=== PATIENT | female | born 1970 | race Caucasian/White ===

== ENCOUNTER 2016-05-21 06:44 | Emergency (ER) | payer BC ==
[2016-05-21] MEDS ORDERED: Sodium Chloride 0.9% 2.5 ML Syringe FLUSH PRN (07:07)
[2016-05-21] MEDS ORDERED: Sodium Chloride 0.9% 10 ML Syringe FLUSH PRN (07:07)
[2016-05-21] MEDS ORDERED: Ketorolac 30 MG/ML SDV IVPUSH ONE (07:07)
[2016-05-21] MEDS ORDERED: Sodium Chloride 0.9% 1,000 ML IV ONE (07:07)
[2016-05-21] MEDS ORDERED: LORazepam 2 MG/ML MDV IVPUSH ONE (07:09)
[2016-05-21] MEDS ORDERED: HYDROmorphone 1 MG/ML Syringe IVPUSH PRN (07:10)
[2016-05-21] MEDS ORDERED: Ondansetron 4 MG/2 ML SDV IVPUSH ONE (07:11)
--- NOTE | 2016-05-21 07:20 | EDM.PDOC ---
ED HPI GI/ABDOMINAL - General Chief Complaint: Abdominal Pain Stated Complaint: CHEST PAIN, SHORTNESS OF BREATH Time Seen by Provider: 05/21/16 06:58 Source of Information: Reports: Patient History Limitations: Reports: No limitations - History of Present Illness INITIAL COMMENTS - FREE TEXT/NARRATIVE: History of present illness: [] Patient has had several weeks of upper abdominal pain one to 2 times a week and is alleviated with antacids. Patient awoke at 4 this morning with severe, sharp, left upper abdominal pain radiating to her chest, nausea and bilious vomiting. Patient denies fevers, diarrhea or back pain. Review of systems: As per history of present illness and below otherwise all systems reviewed and negative. Past medical history: As per history of present illness and as reviewed below otherwise noncontributory. Surgical history: As per history of present illness and as reviewed below otherwise noncontributory. Social history: No reported history of drug or alcohol abuse. Family history: As per history of present illness and as reviewed below otherwise noncontributory. Physical exam: General: Well developed, well nourished in severe painful distress HEENT: Atraumatic, normocephalic, pupils reactive, negative for conjunctival pallor or scleral icterus, mucous membranes moist, throat clear, neck supple, nontender, trachea midline. Lungs: Clear to auscultation, breath sounds equal bilaterally, chest nontender. Heart: S1S2, regular, negative for clicks, rubs, or JVD. Abdomen: Soft, nondistended, upper abdominal tenderness without rebound or regarding. Negative for masses or hepatosplenomegaly. Negative for costovertebral tenderness. Pelvis: Stable nontender. Genitourinary: Deferred. Rectal: Deferred. Extremities: Atraumatic, negative for cords or calf pain. Neurovascular unremarkable. Neuro: Awake, alert, oriented. Cranial nerves II through XII unremarkable. Cerebellum unremarkable. Motor and sensory unremarkable throughout. Exam nonfocal. Diagnostics: []labs are normal x-rays to rule out perforation and obstruction Therapeutics: []patient was hydrated and given pain medicines antiemetics and as Pepcid with improvement Impression: []GERD Plan: []omeprazole twice a day for 2 weeks followup with primary care physician return if symptoms worsen Definitive disposition and diagnosis as appropriate pending reevaluation and review of above. - Related Data Allergies/ADRs: Allergies Allergy/AdvReac Type Severity Reaction Status Date / Time morphine Allergy Itching Verified 05/21/16 06:50 Home Meds: Home Meds Acetaminophen/HYDROcodone [Lortab 500-5 MG] 1 tab PO ASDIRECTED PRN 07/17/13 [ History] FLUoxetine [PROzac] 20 mg PO DAILY 07/17/13 [History] Phentermine HCl 37.5 mg PO ASDIRECTED 09/14/15 [History] Lisinopril 10 mg PO DAILY 05/21/16 [History] Past Medical History - Past Health History Medical/Surgical History: Denies Medical/Surgical History Social & Family History - Tobacco Use Smoking Status *Q: Never Smoker Years of Tobacco use: 10 Second Hand Smoke Exposure: No - Recreational Drug Use Recreational Drug Use: No ED ROS GENERAL - Review of Systems Review Of Systems: See Below (see history of present illness) ED EXAM, GI/ABD - Physical Exam Exam: See Below (See history of present illness) Course - Vital Signs Last Recorded V/S: Last Vital Signs Temp 37.2 C 05/21/16 06:52 Pulse 61 05/21/16 08:00 Resp 16 05/21/16 08:00 BP 149/83 H 05/21/16 08:00 Pulse Ox 95 05/21/16 08:00 - Orders/Labs/Meds Orders: Active Orders 24 hr Category Date Time Status EKG Documentation Completion [RC] STAT Care 05/21/16 06:56 Active Acute Abdomen Series [Abdomen 2V AP Upright Decub] [CR] Exams 05/21/16 07:55 Taken Stat HYDROmorphone [Dilaudid] Med 05/21/16 07:10 Active 0.5 mg IVPUSH Q1H PRN Sodium Chloride 0.9% [Saline Flush] Med 05/21/16 07:07 Active 10 ml FLUSH ASDIRECTED PRN Sodium Chloride 0.9% [Saline Flush] Med 05/21/16 07:07 Active 2.5 ml FLUSH ASDIRECTED PRN Peripheral IV Insertion Adult [OM.PC] Stat Oth 05/21/16 07:06 Ordered Medication Orders Hydromorphone HCl (Dilaudid) 0.5 mg IVPUSH Q1H PRN PRN Reason: Pain Last Admin: 05/21/16 07:28 Dose: 0.5 mg Sodium Chloride (Saline Flush) 10 ml FLUSH ASDIRECTED PRN PRN Reason: Keep Vein Open Last Admin: 05/21/16 07:27 Dose: 10 ml Sodium Chloride (Saline Flush) 2.5 ml FLUSH ASDIRECTED PRN PRN Reason: Keep Vein Open Last Admin: 05/21/16 07:25 Dose: 2.5 ml Labs: Laboratory Tests 05/21/16 05/21/16 05/21/16 Range/Units 07:07 07:07 09:10 WBC 8.52 (4.0-11.0) K/uL RBC 4.70 (4.30-5.90) M/uL Hgb 15.4 (12.0-16.0) g/dL Hct 43.9 (36.0-46.0) % MCV 93.4 (80.0-98.0) fL MCH 32.8 H (27.0-32.0) pg MCHC 35.1 (31.0-37.0) g/dL RDW Std Deviation 43.0 (28.0-62.0) fl RDW Coeff of Anthony 13 (11.0-15.0) % Plt Count 283 (150-400) K/uL MPV 10.10 (7.40-12.00) fL Neut % (Auto) 56.7 (48.0-80.0) % Lymph % (Auto) 34.7 (16.0-40.0) % [place] % (Auto) 7.5 (0.0-15.0) % Eos % (Auto) 0.7 (0.0-7.0) % Baso % (Auto) 0.4 (0.0-1.5) % Neut # (Auto) 4.8 (1.4-5.7) K/uL Lymph # (Auto) 3.0 H (0.6-2.4) K/uL [place] # (Auto) 0.6 (0.0-0.8) K/uL Eos # (Auto) 0.1 (0.0-0.7) K/uL Baso # (Auto) 0.0 (0.0-0.1) K/uL Nucleated RBC % 0.0 /100WBC Nucleated RBCs # 0 K/uL Sodium 139 (136-146) mmol/L Potassium 3.8 (3.5-5.1) mmol/L Chloride 104 (98-110) mmol/L Carbon Dioxide 22 (21-31) mmol/L BUN 17 (6.0-23.0) mg/dL Creatinine 0.8 (0.6-1.5) mg/dL Est Cr Clr Drug Dosing 87.27 mL/min Estimated GFR (MDRD) > 60.0 ml/min Glucose 106 (60-110) mg/dL Calcium 10.6 (8.8-10.8) mg/dL Total Bilirubin 0.4 (0.1-1.5) mg/dL AST 24 (5-40) IU/L ALT 48 (8-54) IU/L Alkaline Phosphatase 89 (40-150) Total Protein 7.5 (6.0-8.0) g/dL Albumin 4.2 (3.5-5.0) g/dL Globulin 3.3 (2.0-3.5) g/dL Albumin/Globulin Ratio 1.3 (1.3-2.8) Lipase 33 (7-80) U/L Urine Color YELLOW Urine Appearance CLEAR Urine pH 8.0 (5.0-8.0) Ur Specific [place] 1.010 (1.001-1.035) Urine Protein NEGATIVE (NEGATIVE) mg/dL Urine Glucose (UA) NEGATIVE (NEGATIVE) mg/dL Urine Ketones NEGATIVE (NEGATIVE) mg/dL Urine Occult Blood NEGATIVE (NEGATIVE) Urine Nitrite NEGATIVE (NEGATIVE) Urine Bilirubin NEGATIVE (NEGATIVE) Urine Urobilinogen 0.2 (<2.0) EU/dL Ur Leukocyte Esterase NEGATIVE (NEGATIVE) Urine RBC 0-1 (0-2/HPF) Urine WBC 0-1 (0-5/HPF) Ur Epithelial Cells FEW (NONE-FEW) Urine Bacteria FEW (NEGATIVE) Meds: Medications Generic Name Dose Route Start Last Admin Trade Name Freq PRN Reason Stop Dose Admin Hydromorphone HCl 0.5 mg 05/21/16 07:10 05/21/16 07:28 Dilaudid IVPUSH 0.5 mg Q1H PRN Administration Pain Sodium Chloride 10 ml 05/21/16 07:07 05/21/16 07:27 Saline Flush FLUSH 10 ml ASDIRECTED PRN Administration Keep Vein Open Sodium Chloride 2.5 ml 05/21/16 07:07 05/21/16 07:25 Saline Flush FLUSH 2.5 ml ASDIRECTED PRN Administration Keep Vein Open Discontinued Medications Generic Name Dose Route Start Last Admin Trade Name Franny PRN Reason Stop Dose Admin Famotidine 20 mg 05/21/16 07:44 05/21/16 09:17 Pepcid IVPUSH 05/21/16 07:45 20 mg ONETIME ONE Administration Sodium Chloride 1,000 mls @ 999 mls/hr 05/21/16 07:07 05/21/16 07:23 Normal Saline IV 05/21/16 08:07 999 mls/hr .Bolus ONE Administration Ketorolac Tromethamine 30 mg 05/21/16 07:07 05/21/16 07:24 Toradol IVPUSH 05/21/16 07:08 30 mg ONETIME ONE Administration Lorazepam 1 mg 05/21/16 07:09 05/21/16 07:22 Ativan IVPUSH 05/21/16 07:10 1 mg ONETIME ONE Administration Ondansetron HCl 4 mg 05/21/16 07:11 05/21/16 07:28 Zofran IVPUSH 05/21/16 07:12 4 mg ONETIME ONE Administration Departure - Departure Time of Disposition: 09:39 Disposition: Home, Self-Care 01 Condition: good Clinical Impression: GERD (gastroesophageal reflux disease) Qualifiers: Esophagitis presence: esophagitis presence not specified Qualified Code(s): K21.9 - Gastro-esophageal reflux disease without esophagitis Referrals: Angie Stallinsg BOOK [employer]ICITOR [Primary Care Provider] - Forms: ED Department Discharge Additional Instructions: The following information is given to patients seen in the emergency department who are being discharged to home. This information is to outline your options for follow-up care. We provide all patients seen in our emergency department with a follow-up referral. The need for follow-up, as well as the timing and circumstances, are variable depending upon the specifics of your emergency department visit. If you don't have a primary care physician on staff, we will provide you with a referral. We always advise you to contact your personal physician following an emergency department visit to inform them of the circumstance of the visit and for follow-up with them and/or the need for any referrals to a consulting specialist. The emergency department will also refer you to a specialist when appropriate. This referral assures that you have the opportunity for follow-up care with a specialist. All of these measure are taken in an effort to provide you with optimal care, which includes your follow-up. Under all circumstances we always encourage you to contact your private physician who remains a resource for coordinating your care. When calling for follow-up care, please make the office aware that this follow-up is from your recent emergency room visit. If for any reason you are refused follow-up, please contact the [facility] Emergency Department at and asked to speak to the emergency department charge nurse. Omeprazole twice a day for 2 weeks follow up with your primary care physician [facility] [address] [place] [phone] - My Orders Last 24 Hours: My Active Orders 05/21/16 07:06 Peripheral IV Insertion Adult [OM.PC] Stat 05/21/16 07:07 Sodium Chloride 0.9% [Saline Flush] 10 ml FLUSH ASDIRECTED PRN Sodium Chloride 0.9% [Saline Flush] 2.5 ml FLUSH ASDIRECTED PRN 05/21/16 07:10 HYDROmorphone [Dilaudid] 0.5 mg IVPUSH Q1H PRN 05/21/16 07:55 Acute Abdomen Series [Abdomen 2V AP Upright Decub] [CR] Stat - Assessment/Plan Last 24 Hours: My Active Orders 05/21/16 07:06 Peripheral IV Insertion Adult [OM.PC] Stat 05/21/16 07:07 Sodium Chloride 0.9% [Saline Flush] 10 ml FLUSH ASDIRECTED PRN Sodium Chloride 0.9% [Saline Flush] 2.5 ml FLUSH ASDIRECTED PRN 05/21/16 07:10 HYDROmorphone [Dilaudid] 0.5 mg IVPUSH Q1H PRN 05/21/16 07:55 Acute Abdomen Series [Abdomen 2V AP Upright Decub] [CR] Stat
[2016-05-21 07:32] LABS: CHLORIDE,CL 104 mmol/L (98-110); SODIUM,NA 139 mmol/L (136-146)
[2016-05-21] MEDS ORDERED: Famotidine 20 MG/2 ML SDV IVPUSH ONE (07:44)
[2016-05-21 09:54] VITALS: BP 118/89
--- NOTE | 2016-05-23 10:30 | CR ---
EXAM DATE: 05/21/16 PATIENT'S AGE: 45 Patient: ALL ALVAREZ Facility: [place], [place] Site . Site : 1970 Study: XRay Abdomen [id number]/15/2017 8:19:08 AM Ordering Physician: Haresh Murray Final Report: INDICATION: Upper abdominal pain. Rule out free air. TECHNIQUE: Flat and upright. COMPARISON: None. FINDINGS: Bowel gas pattern within normal limits. No free air or significant abnormal calcification. CONCLUSION: Negative abdomen. Dictated by Michael Coe MD @ May 21 2016 8:29AM (Electronic Signature) Report Signed by Proxy and Original Signed Document filed in the Medical Record. MTDD
== END 2016-05-21 09:52 | disposition home or self-care (01) ==
LOC: MW.ED 06:44
DX: K21.9 Gastro-esophageal reflux disease without esophagitis (principal); Z88.5 Allergy status to narcotic agent; Z79.899 Other long term (current) drug therapy
CPT/HCPCS: 36415; 74022; 80053; 81001; 83690; 85025; 93005; 96361; 96374; 96375; 99284; J1170; J1885; J2060; J2405; J7040

== ENCOUNTER 2016-07-08 10:27 | Day surgery (SDC) | payer BC ==
[~2016-07-08 10:27] MED LIST: Lactated Ringers 1,000 ML IV SCH; Midazolam 1 MG/ML 2 ML SDV ONE; Propofol 200 MG/20 ML SDV ONE
--- NOTE | 2016-07-08 10:57 | PCM.PREANE ---
Preanesthetic Assessment - Anesthesia/Transfusion/Family Hx Anesthesia History: Prior Anesthesia Without Reaction Family History of Anesthesia Reaction: No Transfusion History: No Prior Transfusion(s) Intubation History: Unknown - Review of Systems General: No Symptoms Pulmonary: No Symptoms Cardiovascular: No Symptoms Gastrointestinal: Abdominal pain Neurological: No Symptoms Other: Reports: None - Physical Assessment O2 Sat by Pulse Oximetry: 95 Respiratory Rate: 16 Vital Signs: Last Vital Signs Temp 36.5 C 07/08/16 10:42 Pulse 73 07/08/16 10:42 Resp 16 07/08/16 10:42 BP 129/73 07/08/16 10:42 Pulse Ox 95 07/08/16 10:42 Height: 1.73 m Weight: 131.542 kg ASA Class: 3 Mental Status: Alert & Oriented x3 Airway Class: Mallampati = 2 Dentition: Reports: Normal Dentition Thyro-Mental Finger Breadths: 3 Mouth Opening Finger Breadths: 3 ROM/Head Extension: Full Lungs: Clear to auscultation, Normal respiratory effort Cardiovascular: Regular Rate, Regular Rhythm - Allergies Allergies/Adverse Reactions: Allergies Allergy/AdvReac Type Severity Reaction Status Date / Time morphine Allergy Itching Verified 05/21/16 06:50 - Blood Blood Available: No - Anesthesia Plan Pre-Op Medication Ordered: None - Acknowledgements Pt an Appropriate Candidate for the Planned Anesthesia: Yes Alternatives and Risks of Anesthesia Discussed w Pt/Guardian: Yes Pt/Guardian Understands and Agrees with Anesthesia Plan: Yes PreAnesthesia Questionnaire - Past Health History Medical/Surgical History: Denies Medical/Surgical History HEENT History: Reports: Hard of Hearing, Impaired Vision, Other (See Below) Other HEENT History: wears glasses, brenda hearing aids Cardiovascular History: Reports: Hypertension Respiratory History: Reports: None Gastrointestinal History: Reports: GERD Genitourinary History: Reports: None 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: Musculoskeletal History: Reports: Back Pain, Chronic Neurological History: Reports: Migraines Psychiatric History: Reports: Anxiety, Depression Endocrine/Metabolic History: Reports: Obesity/BMI 30+ (BMI 44.1) Hematologic History: Reports: None Oncologic (Cancer) History: Reports: None Dermatologic History: Reports: None - Infectious Disease History Infectious Disease History: Reports: None - Past Surgical History Head Surgeries/Procedures: Reports: None Female Surgical History: Reports: Section (x2), Hysterectomy Musculoskeletal Surgical History: Reports: Arthroscopic Knee, Shoulder Surgery Other Musculoskeletal Surgeries/Procedures:: hx of right knee arthroscopy and right rotator cuff repair - SUBSTANCE USE Smoking Status *Q: Never Smoker Second Hand Smoke Exposure: No Recreational Drug Use History: No - HOME MEDS Home Medications: Home Meds FLUoxetine [PROzac] 3 tab PO DAILY 07/17/13 [History] ALPRAZolam [Xanax] 0.5 mg PO ASDIRECTED PRN 07/06/16 [History] Butalbital/Acetaminophen [Butalbital-Acetaminophn 50-325] 1 tab PO ASDIRECTED PRN 07/06/16 [History] Hydrocodone/Acetaminophen [Hydrocodon-Acetaminoph 7.5-325] 1 tab PO ASDIRECTED PRN 07/06/16 [History] Lisinopril/Hydrochlorothiazide [Lisinopril-Hctz 10-12.5 mg Tab] 1 tab PO DAILY 07/06/16 [History] Multivitamin [Multivitamins] 1 tab PO DAILY 07/06/16 [History] Pantoprazole Sodium 40 mg PO BID 07/06/16 [History] Sucralfate [Carafate] 1 gm PO QID 07/06/16 [History] oxyCODONE HCl [Oxycontin] 1 tab PO BID PRN 07/06/16 [History] - CURRENT (IN HOUSE) MEDS Current Meds: Current Medications Lactated Ringer's (Ringers, Lactated) 1,000 mls @ 125 mls/hr IV ASDIRECTED LUKAS Last Admin: 07/08/16 10:44 Dose: 125 mls/hr Discontinued Medications Midazolam HCl (Versed 1 Mg/Ml) Confirm Administered Dose 2 mg .ROUTE .STK-MED ONE Stop: 07/08/16 06:55 Propofol (Diprivan 20 Ml) Confirm Administered Dose 400 mg .ROUTE .STK-MED ONE Stop: 07/08/16 06:55
[2016-07-08 12:23] VITALS: BP 113/61
[2016-07-08] MEDS ORDERED: Lactated Ringers 1,000 ML IV SCH (12:30)
--- NOTE | 2016-07-08 12:32 | PCM.OPNOTE ---
- General Post-Op/Procedure Note Date of Surgery/Procedure: 07/08/16 Pre Op Diagnosis: Epigastric pain Post-Op Diagnosis: Gastritis. Esophagitis Anesthesia Technique: MAC (ASA III) Primary Surgeon: Jackson Chaudhry Condition: Good Free Text/Narrative:: Dictation [id number]
--- NOTE | 2016-07-08 18:57 | OR ---
SURGEON: Jackson Chaudhry M.D. DATE OF PROCEDURE: 07/08/2016 OPERATION PERFORMED: Esophagogastroduodenoscopy with biopsy. ANESTHESIA: MAC. ASA CLASSIFICATION: III. PREOPERATIVE DIAGNOSIS: Epigastric pain. POSTOPERATIVE DIAGNOSIS: [id number] gastritis. DESCRIPTION OF PROCEDURE: The patient was taken to the endoscopy room and positioned on the endoscopy table in the supine position. Time-out was called for appropriate identification of the patient and procedure. Monitored anesthesia care was provided. The bite block was placed between the patient's teeth. The gastroscope was inserted through the end of the mouth and advanced without difficulty through the esophagus and stomach into the duodenum, where examination was carried out in a retrograde fashion. The duodenum shows no acute inflammatory changes or ulcerations. The gastroscope was withdrawn to the stomach, which shows a mild gastritis. Antral biopsies were obtained to look for the presence of Helicobacter pylori. The gastroscope was then retroflexed to visualize the proximal stomach. No ulcerations were noted proximally and there were no significant inflammatory changes. The patient does have a small hiatal hernia and mild esophagitis. No esophageal ulcerations were noted. The gastroscope was straightened and slowly withdrawn aspirating the stomach. The esophagus demonstrated good contractility. No mid or proximal lesions were identified. The vocal cords were visualized as the scope was withdrawn and noted to move symmetrically. The gastroscope was then removed with the patient having tolerated the procedure well. She was taken to recovery room in stable condition. RAMIREZ / SERVANDO /[id number]
== END 2016-07-08 12:25 | disposition home or self-care (01) ==
LOC: MW.SDS 10:27 → MERGE 12:30
PROVIDERS: ATTEND Surgery
PROC: 0DB68ZX Excision of Stomach, Via Natural or Artificial Opening Endoscopic, Diagnostic (ICD-10-PCS; principal; 2016-07-08)
DX: K29.50 Unspecified chronic gastritis without bleeding (principal); K44.9 Diaphragmatic hernia without obstruction or gangrene; K20.9 Esophagitis, unspecified; I10 Essential (primary) hypertension; F32.9 Major depressive disorder, single episode, unspecified; E66.9 Obesity, unspecified; Z88.5 Allergy status to narcotic agent; Z79.899 Other long term (current) drug therapy; Z98.890 Other specified postprocedural states; Z90.710 Acquired absence of both cervix and uterus; Z68.41 Body mass index [BMI] 40.0-44.9, adult
CPT/HCPCS: 43239; J2250; J7120; 00740; 88305; 88312; J2704

== ENCOUNTER 2016-08-24 01:35 | Emergency (ER) | payer BC ==
[2016-08-24] MEDS ORDERED: Ondansetron 4 MG/2 ML SDV IVPUSH ONE (01:51)
[2016-08-24] MEDS ORDERED: HYDROmorphone 2 MG/ML Syringe IVPUSH ONE (01:51)
[2016-08-24] MEDS ORDERED: Pantoprazole 40 MG Vial IVPUSH ONE (01:52)
[2016-08-24] MEDS ORDERED: Alum Hydrox/Mag Hydrox/Simeth 15 ML, Lidocaine 2% 5 ML PO ONE ×2 (01:54)
--- NOTE | 2016-08-24 02:07 | EDM.PDOC ---
ED HPI GENERAL MEDICAL PROBLEM - General Chief Complaint: Abdominal Pain Stated Complaint: ABDOMINAL PAIN Time Seen by Provider: 08/24/16 01:55 Source of Information: Reports: Patient, Old Records, RN - History of Present Illness INITIAL COMMENTS - FREE TEXT/NARRATIVE: she complains of waking up about one hour ago with severe epigastric pain. She presents to the ED by EMS. no vomiting no fever she has undergone EGD by Dr Danna Chaudhry which showed gastritis. she has been on carafate. no fever no clear dietary precipitating factors. Epigastric Pain Score (Numeric/FACES): 10 - Related Data Allergies Allergy/AdvReac Type Severity Reaction Status Date / Time morphine Allergy Itching Verified 08/24/16 01:46 Home Meds: Home Meds FLUoxetine [PROzac] 3 tab PO DAILY 07/17/13 [History] ALPRAZolam [Xanax] 0.5 mg PO ASDIRECTED PRN 07/06/16 [History] Butalbital/Acetaminophen [Butalbital-Acetaminophn 50-325] 1 tab PO ASDIRECTED PRN 07/06/16 [History] Hydrocodone/Acetaminophen [Hydrocodon-Acetaminoph 7.5-325] 1 tab PO ASDIRECTED PRN 07/06/16 [History] Lisinopril/Hydrochlorothiazide [Lisinopril-Hctz 10-12.5 mg Tab] 1 tab PO DAILY 07/06/16 [History] Multivitamin [Multivitamins] 1 tab PO DAILY 07/06/16 [History] Pantoprazole Sodium 0 mg PO BID 07/06/16 [History] Sucralfate [Carafate] 0 gm PO QID 07/06/16 [History] oxyCODONE HCl [Oxycontin] 0 mg PO ASDIRECTED PRN 07/06/16 [History] Past Medical History - Past Health History Medical/Surgical History: Denies Medical/Surgical History HEENT History: Reports: Hard of Hearing, Impaired Vision, Other (See Below) Other HEENT History: wears glasses, brenda hearing aids Cardiovascular History: Reports: Hypertension Respiratory History: Reports: None Gastrointestinal History: Reports: GERD Genitourinary History: Reports: None [employer]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: Musculoskeletal History: Reports: Back Pain, Chronic Neurological History: Reports: Migraines Psychiatric History: Reports: Anxiety, Depression Endocrine/Metabolic History: Reports: Obesity/BMI 30+ Hematologic History: Reports: None Oncologic (Cancer) History: Reports: None Dermatologic History: Reports: None - Infectious Disease History Infectious Disease History: Reports: None - Past Surgical History Head Surgeries/Procedures: Reports: None Female Surgical History: Reports: Section, Hysterectomy Musculoskeletal Surgical History: Reports: Arthroscopic Knee, Shoulder Surgery Other Musculoskeletal Surgeries/Procedures:: hx of right knee arthroscopy and right rotator cuff repair Social & Family History - Family History Family Medical History: Noncontributory - Tobacco Use Smoking Status *Q: Never Smoker Years of Tobacco use: 10 Second Hand Smoke Exposure: No - Caffeine Use Caffeine Use: Reports: Soda - Recreational Drug Use Recreational Drug Use: No ED ROS GENERAL - Review of Systems Review Of Systems: See Below Constitutional: Denies: Fever, Chills Respiratory: Denies: Shortness of Breath Cardiovascular: Denies: Chest Pain GI/Abdominal: Reports: Abdominal Pain. Denies: Black Stool, Bloody Stool ED EXAM, GI/ABD - Physical Exam Exam: See Below General Appearance: Alert, Moderate Distress Head: Atraumatic Respiratory/Chest: No Respiratory Distress, Lungs Clear Cardiovascular: Normal Peripheral Pulses, Regular Rate, Rhythm GI/Abdominal Exam: Soft, No Distention, Tender (moderate epigastric tenderness) . No: Rebound Course - Vital Signs Last Recorded V/S: Last Vital Signs Temp 97.0 F 08/24/16 01:46 Pulse 71 08/24/16 02:32 Resp 18 08/24/16 02:32 BP 168/91 H 08/24/16 02:32 Pulse Ox 96 08/24/16 02:32 - Orders/Labs/Meds Labs: Laboratory Tests 08/24/16 08/24/16 08/24/16 Range/Units 02:00 02:00 02:00 WBC 9.45 (4.0-11.0) K/uL RBC 4.50 (4.30-5.90) M/uL Hgb 14.5 (12.0-16.0) g/dL Hct 42.5 (36.0-46.0) % MCV 94.4 (80.0-98.0) fL MCH 32.2 H (27.0-32.0) pg MCHC 34.1 (31.0-37.0) g/dL RDW Std Deviation 44.2 (28.0-62.0) fl RDW Coeff of Anthony 13 (11.0-15.0) % Plt Count 265 (150-400) K/uL MPV 9.10 (7.40-12.00) fL Neut % (Auto) 52.7 (48.0-80.0) % Lymph % (Auto) 39.2 (16.0-40.0) % [place] % (Auto) 7.0 (0.0-15.0) % Eos % (Auto) 0.8 (0.0-7.0) % Baso % (Auto) 0.3 (0.0-1.5) % Neut # (Auto) 5.0 (1.4-5.7) K/uL Lymph # (Auto) 3.7 H (0.6-2.4) K/uL [place] # (Auto) 0.7 (0.0-0.8) K/uL Eos # (Auto) 0.1 (0.0-0.7) K/uL Baso # (Auto) 0.0 (0.0-0.1) K/uL Nucleated RBC % 0.0 /100WBC Nucleated RBCs # 0 K/uL Sodium 140 (136-146) mmol/L Potassium 3.9 (3.5-5.1) mmol/L Chloride 102 (98-110) mmol/L Carbon Dioxide 28 (21-31) mmol/L BUN 17 (6.0-23.0) mg/dL Creatinine 0.8 (0.6-1.5) mg/dL Est Cr Clr Drug Dosing 89.94 mL/min Estimated GFR (MDRD) > 60.0 ml/min Glucose 108 (60-110) mg/dL Calcium 9.6 (8.8-10.8) mg/dL Total Bilirubin 0.5 (0.1-1.5) mg/dL AST 71 H (5-40) IU/L ALT 55 H (8-54) IU/L Alkaline Phosphatase 104 (40-150) Total Protein 7.3 (6.0-8.0) g/dL Albumin 4.1 (3.5-5.0) g/dL Globulin 3.2 (2.0-3.5) g/dL Albumin/Globulin Ratio 1.3 (1.3-2.8) HCG, Qual NEGATIVE (NEG) Meds: Medications Discontinued Medications Generic Name Dose Route Start Last Admin Trade Name Franny PRN Reason Stop Dose Admin Al Hydroxide/Mg Hydroxide 15 0 ml 08/24/16 01:54 08/24/16 02:19 ml/ Lidocaine HCl 5 ml PO 08/24/16 01:55 20 each ONETIME ONE Administration Hydromorphone HCl 2 mg 08/24/16 01:51 08/24/16 02:16 Dilaudid IVPUSH 08/24/16 01:52 2 mg ONETIME ONE Administration Ondansetron HCl 4 mg 08/24/16 01:51 08/24/16 02:15 Zofran IVPUSH 08/24/16 01:52 4 mg ONETIME ONE Administration Pantoprazole Sodium 80 mg 08/24/16 01:52 08/24/16 02:12 Protonix Iv IVPUSH 08/24/16 01:53 80 mg .BOLUS ONE Administration - Re-Assessments/Exams Free Text/Narrative Re-Assessment/Exam: 08/24/16 03:05 I advised that she has elevated LFT's and needs follow up with her primary care doctor. she states that she will follow up this week she may take oxycodone as needed. She has some at home. Free Text/Narrative Re-Assessment/Exam: 08/24/16 03:05 she states that she is feeling much better. Departure - Departure Time of Disposition: 03:06 Disposition: Home, Self-Care 01 Condition: Good Clinical Impression: Gastritis - Discharge Information Forms: ED Department Discharge Additional Instructions: bring a copy of today's ER note with you to see your primary care provider this week.
[2016-08-24 02:31] LABS: CHLORIDE,CL 102 mmol/L (98-110); SODIUM,NA 140 mmol/L (136-146)
[2016-08-24 03:31] VITALS: BP 127/63
== END 2016-08-24 03:25 | disposition home or self-care (01) ==
LOC: MW.ED 01:35
DX: K29.70 Gastritis, unspecified, without bleeding (principal); I10 Essential (primary) hypertension; K21.9 Gastro-esophageal reflux disease without esophagitis; F41.9 Anxiety disorder, unspecified; F32.9 Major depressive disorder, single episode, unspecified; E66.9 Obesity, unspecified; Z90.710 Acquired absence of both cervix and uterus; Z98.890 Other specified postprocedural states; Z88.5 Allergy status to narcotic agent; Z68.41 Body mass index [BMI] 40.0-44.9, adult
CPT/HCPCS: 36415; 80053; 84703; 85025; 96374; 96375; 99284; A9270; C9113; J1170; J2405

== ENCOUNTER 2016-10-15 21:02 | Emergency (ER) | payer BC ==
--- NOTE | 2016-10-15 21:09 | EDM.PDOC ---
ED HPI GENERAL MEDICAL PROBLEM - General Chief Complaint: General Stated Complaint: BROKE OUT IN HIVES Time Seen by Provider: 10/15/16 21:08 Source of Information: Reports: Patient History Limitations: Reports: No Limitations - History of Present Illness INITIAL COMMENTS - FREE TEXT/NARRATIVE: History of present illness: [46-year-old female presenting with acute onset of rash started last night and has gotten progressively worse. Patient has taken Percocet status post laparoscopic cholecystectomy and also started duloxetine. These are both new medications for the patient and she indicated that she had Percocet quite some years ago without a problem but the duloxetine she had never had until last night.] Review of systems: As per history of present illness and below otherwise all systems reviewed and negative. Past medical history: As per history of present illness and as reviewed below otherwise noncontributory. Surgical history: As per history of present illness and as reviewed below otherwise noncontributory. Social history: No reported history of drug or alcohol abuse. Family history: As per history of present illness and as reviewed below otherwise noncontributory. Physical exam: HEENT: Atraumatic, normocephalic, pupils reactive, negative for conjunctival pallor or scleral icterus, mucous membranes moist, throat clear, neck supple, nontender, trachea midline. Lungs: Clear to auscultation, breath sounds equal bilaterally, chest nontender. Heart: S1S2, regular, negative for clicks, rubs, or JVD. Abdomen: Soft, nondistended, nontender. Negative for masses or hepatosplenomegaly. Negative for costovertebral tenderness. Pelvis: Stable nontender. Genitourinary: Deferred. Rectal: Deferred. Extremities: Atraumatic, negative for cords or calf pain. Neurovascular unremarkable. Neuro: Awake, alert, oriented. Cranial nerves II through XII unremarkable. Cerebellum unremarkable. Motor and sensory unremarkable throughout. Exam nonfocal. Skin: Diffuse rash spread all over extremities some of the trunk region on the front and the back. Patient indicates that she has taken 8 Benadryl tablets in the last 24 hours and her PCP nurse indicated that that was maximum allowable. Patient indicates that she no longer itches and feels much better and feels comfortable and safe going home Diagnostics: [] Therapeutics: [IV fluid, Solu-Medrol] Impression: [#1 allergic dermatitis] Plan: [Medrol Dosepak] Definitive disposition and diagnosis as appropriate pending reevaluation and review of above. no pain Pain Score (Numeric/FACES): 0 - Related Data Allergies Allergy/AdvReac Type Severity Reaction Status Date / Time morphine Allergy Itching Verified 10/15/16 21:09 Home Meds: Home Meds FLUoxetine [PROzac] 3 tab PO DAILY 07/17/13 [History] ALPRAZolam [Xanax] 0.5 mg PO ASDIRECTED PRN 07/06/16 [History] Butalbital/Acetaminophen [Butalbital-Acetaminophn 50-325] 1 tab PO ASDIRECTED PRN 07/06/16 [History] Hydrocodone/Acetaminophen [Hydrocodon-Acetaminoph 7.5-325] 1 tab PO ASDIRECTED PRN 07/06/16 [History] Lisinopril/Hydrochlorothiazide [Lisinopril-Hctz 10-12.5 mg Tab] 1 tab PO DAILY 07/06/16 [History] Multivitamin [Multivitamins] 1 tab PO DAILY 07/06/16 [History] Pantoprazole Sodium 0 mg PO BID 07/06/16 [History] Sucralfate [Carafate] 0 gm PO QID 07/06/16 [History] oxyCODONE HCl [Oxycontin] 0 mg PO ASDIRECTED PRN 07/06/16 [History] methylPREDNISolone [Medrol] 4 mg PO DAILY #21 tab.ds.pk 10/15/16 [Rx] Past Medical History - Past Health History Medical/Surgical History: Denies Medical/Surgical History HEENT History: Reports: Hard of Hearing, Impaired Vision, Other (See Below) Other HEENT History: wears glasses, brenda hearing aids Cardiovascular History: Reports: Hypertension Respiratory History: Reports: None Gastrointestinal History: Reports: GERD Genitourinary History: Reports: 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: Musculoskeletal History: Reports: Back Pain, Chronic Neurological History: Reports: Migraines Psychiatric History: Reports: Anxiety, Depression Endocrine/Metabolic History: Reports: Obesity/BMI 30+ Hematologic History: Reports: None Oncologic (Cancer) History: Reports: None Dermatologic History: Reports: None - Infectious Disease History Infectious Disease History: Reports: None - Past Surgical History Head Surgeries/Procedures: Reports: None Female Surgical History: Reports: Section, Hysterectomy Musculoskeletal Surgical History: Reports: Arthroscopic Knee, Shoulder Surgery Other Musculoskeletal Surgeries/Procedures:: hx of right knee arthroscopy and right rotator cuff repair Social & Family History - Family History Family Medical History: Noncontributory - Tobacco Use Smoking Status *Q: Never Smoker Years of Tobacco use: 10 Second Hand Smoke Exposure: No - Caffeine Use Caffeine Use: Reports: Soda - Recreational Drug Use Recreational Drug Use: No ED ROS GENERAL - Review of Systems Review Of Systems: See Below (See history of present illness) ED EXAM, GENERAL - Physical Exam Exam: See Below (See history of present illness) Course - Vital Signs Last Recorded V/S: Last Vital Signs Temp 36.2 C 10/15/16 21:09 Pulse 97 10/15/16 21:09 Resp 18 10/15/16 21:09 BP 145/82 H 10/15/16 21:09 Pulse Ox 96 10/15/16 21:09 - Orders/Labs/Meds Orders: Active Orders 24 hr Category Date Time Status Sodium Chloride 0.9% [Normal Saline] 1,000 ml Med 10/15/16 21:17 Ordered IV STAT Medication Orders Sodium Chloride (Normal Saline) 1,000 mls @ 999 mls/hr IV STAT ONE Stop: 10/15/16 22:17 Last Admin: 10/15/16 21:23 Dose: 999 mls/hr Meds: Medications Generic Name Dose Route Start Last Admin Trade Name Freq PRN Reason Stop Dose Admin Sodium Chloride 1,000 mls @ 999 mls/hr 10/15/16 21:17 10/15/16 21:23 Normal Saline IV 10/15/16 22:17 999 mls/hr STAT ONE Administration Discontinued Medications Generic Name Dose Route Start Last Admin Trade Name Freq PRN Reason Stop Dose Admin Diphenhydramine HCl 50 mg 10/15/16 21:21 10/15/16 21:26 Benadryl IVPUSH 10/15/16 21:22 50 mg ONETIME ONE Administration Methylprednisolone Sodium Succinate 125 mg 10/15/16 21:17 10/15/16 21:23 Solu-Medrol IVPUSH 10/15/16 21:18 125 mg ONETIME ONE Administration Departure - Departure Time of Disposition: 22:10 Disposition: Home, Self-Care 01 Condition: Good Clinical Impression: Allergic reaction caused by a drug - Discharge Information Prescriptions: methylPREDNISolone [Medrol] 4 mg PO DAILY #21 tab.ds.pk Referrals: Angie Stallings NP [Primary Care Provider] - Forms: ED Department Discharge Additional Instructions: The following information is given to patients seen in the emergency department who are being discharged to home. This information is to outline your options for follow-up care. We provide all patients seen in our emergency department with a follow-up referral. The need for follow-up, as well as the timing and circumstances, are variable depending upon the specifics of your emergency department visit. If you don't have a primary care physician on staff, we will provide you with a referral. We always advise you to contact your personal physician following an emergency department visit to inform them of the circumstance of the visit and for follow-up with them and/or the need for any referrals to a consulting specialist. The emergency department will also refer you to a specialist when appropriate. This referral assures that you have the opportunity for follow-up care with a specialist. All of these measure are taken in an effort to provide you with optimal care, which includes your follow-up. Under all circumstances we always encourage you to contact your private physician who remains a resource for coordinating your care. When calling for follow-up care, please make the office aware that this follow-up is from your recent emergency room visit. If for any reason you are refused follow-up, please contact the [facility] Emergency Department at and asked to speak to the emergency department charge nurse. Take medication as directed Follow-up with PCP 1-2 days Return to ED as needed as discussed - My Orders Last 24 Hours: My Active Orders 10/15/16 21:17 Sodium Chloride 0.9% [Normal Saline] 1,000 ml IV STAT - Assessment/Plan Last 24 Hours: My Active Orders 10/15/16 21:17 Sodium Chloride 0.9% [Normal Saline] 1,000 ml IV STAT
[2016-10-15] MEDS ORDERED: Sodium Chloride 0.9% 1,000 ML IV ONE (21:17)
[2016-10-15] MEDS ORDERED: methylPREDNISolone Sodium Succinate 125 MG/2 ML SDV IVPUSH ONE (21:17)
[2016-10-15] MEDS ORDERED: diphenhydrAMINE 50 MG/ML SDV IVPUSH ONE (21:21)
[2016-10-15 23:37] VITALS: BP 144/86
== END 2016-10-15 22:55 | disposition home or self-care (01) ==
LOC: MW.ED 21:02
DX: L23.3 Allergic contact dermatitis due to drugs in contact with skin (principal); T43.215A Adverse effect of selective serotonin and norepinephrine reuptake inhibitors, initial encounter; I10 Essential (primary) hypertension; K21.9 Gastro-esophageal reflux disease without esophagitis; F41.9 Anxiety disorder, unspecified; F32.9 Major depressive disorder, single episode, unspecified; E66.9 Obesity, unspecified; Z88.5 Allergy status to narcotic agent; Z79.899 Other long term (current) drug therapy; Z90.710 Acquired absence of both cervix and uterus; Z68.41 Body mass index [BMI] 40.0-44.9, adult
CPT/HCPCS: 96361; 96374; 96375; 99283; J1200; J2930; J7040

== ENCOUNTER 2017-08-25 17:47 | Emergency (ER) | payer BC ==
--- NOTE | 2017-08-25 18:34 | EDM.PDOC ---
ED HPI GENERAL MEDICAL PROBLEM - General Chief Complaint: Skin Complaint Stated Complaint: UNK Time Seen by Provider: 08/25/17 18:10 Source of Information: Reports: Patient History Limitations: Reports: No Limitations - History of Present Illness INITIAL COMMENTS - FREE TEXT/NARRATIVE: HISTORY AND PHYSICAL: History of present illness: This is a 47-year-old female that is presenting today with a acute onset history of a cold sore lesion that is occurring on her left upper lip. Patient became concerned due to the tenderness that also started in her anterior cervical area clearly and lymphadenitis which is commonly associated with a cold sore. Patient denies any other symptoms aside from the above stated. Patient denies any history of fevers, any history of any lesions and any other aspects of her body, denies any other oropharynx blisters or lesions, denies any recent illness. Patient does state that she has been stressed recently, and she visited her father who is sick and also had a cold sore which was just a week prior. Patient denies any significant past medical history associated with immunocompromise states. Review of systems: As per history of present illness and below otherwise all systems reviewed and negative. Past medical history: As per history of present illness and as reviewed below otherwise noncontributory. Surgical history: As per history of present illness and as reviewed below otherwise noncontributory. Social history: No reported history of drug or alcohol abuse. Family history: As per history of present illness and as reviewed below otherwise noncontributory. Physical exam: HEENT: Atraumatic, normocephalic, pupils reactive, negative for conjunctival pallor or scleral icterus, mucous membranes moist, small vesicle on the left upper lip with mild inflammation without any signs of cellulitis or any airway compromise, without adenopathy of the upper anterior left cervical chain throat clear, neck supple, nontender, trachea midline. Lungs: Clear to auscultation, breath sounds equal bilaterally, chest nontender. Heart: S1S2, regular, negative for clicks, rubs, or JVD. Extremities: Atraumatic, negative for cords or calf pain. Neurovascular unremarkable. Neuro: Awake, alert, oriented. Cranial nerves II through XII unremarkable. Cerebellum unremarkable. Motor and sensory unremarkable throughout. Exam nonfocal. Diagnostics: None Therapeutics: Prescription for viscous lidocaine Impression: 47 year old female presenting with a 1 day history of a cold sore with associated left anterior cervical lymphadenopathy. Plan: Patient to be discharged with a prescription for viscous lidocaine and recommendation to follow-up with her primary care physician outpatient next week. Definitive disposition and diagnosis as appropriate pending reevaluation and review of above. Left Upper Oral/Mouth Pain Score (Numeric/FACES): 5 - Related Data Allergies Allergy/AdvReac Type Severity Reaction Status Date / Time morphine Allergy Itching Verified 08/25/17 17:57 Home Meds: Home Meds FLUoxetine [PROzac] 3 tab PO DAILY 07/17/13 [History] Butalbital/Acetaminophen [Butalbital-Acetaminophn 50-325] 1 tab PO ASDIRECTED PRN 07/06/16 [History] Hydrocodone/Acetaminophen [Hydrocodon-Acetaminoph 7.5-325] 1 tab PO ASDIRECTED PRN 07/06/16 [History] Multivitamin [Multivitamins] 1 tab PO DAILY 07/06/16 [History] oxyCODONE HCl [Oxycontin] 0 mg PO ASDIRECTED PRN 07/06/16 [History] methylPREDNISolone [Medrol] 4 mg PO DAILY #21 tab.ds.pk 10/15/16 [Rx] Lidocaine 2% [Xylocaine 2% Viscous] 15 ml PO ASDIRECTED 3 Days #2 cup 08/25/17 [ Rx] Past Medical History - Past Health History Medical/Surgical History: Denies Medical/Surgical History HEENT History: Reports: Hard of Hearing, Impaired Vision, Other (See Below) Other HEENT History: wears glasses, brenda hearing aids Cardiovascular History: Reports: Hypertension Respiratory History: Reports: None Gastrointestinal History: Reports: GERD Genitourinary History: Reports: 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: Musculoskeletal History: Reports: Back Pain, Chronic Neurological History: Reports: Migraines Psychiatric History: Reports: Anxiety, Depression Endocrine/Metabolic History: Reports: Obesity/BMI 30+ Hematologic History: Reports: None Oncologic (Cancer) History: Reports: None Dermatologic History: Reports: None - Infectious Disease History Infectious Disease History: Reports: None - Past Surgical History Head Surgeries/Procedures: Reports: None GI Surgical History: Reports: Bariatric Procedure, Cholecystectomy Female Surgical History: Reports: Section, Hysterectomy Musculoskeletal Surgical History: Reports: Arthroscopic Knee, Shoulder Surgery Other Musculoskeletal Surgeries/Procedures:: hx of right knee arthroscopy and right rotator cuff repair Social & Family History - Family History Family Medical History: Noncontributory - Tobacco Use Smoking Status *Q: Never Smoker Second Hand Smoke Exposure: No - Caffeine Use Caffeine Use: Reports: None - Recreational Drug Use Recreational Drug Use: No ED ROS GENERAL - Review of Systems Review Of Systems: See Below ED EXAM, SKIN/RASH Exam: See Below Course - Vital Signs Last Recorded V/S: Last Vital Signs Temp 36.5 C 08/25/17 17:55 Pulse 69 08/25/17 17:55 Resp 17 08/25/17 17:55 BP 131/78 08/25/17 17:55 Pulse Ox 96 08/25/17 17:55 Departure - Departure Time of Disposition: 18:45 Disposition: Home, Self-Care 01 Condition: Good Clinical Impression: Cold sore - Discharge Information Prescriptions: Lidocaine 2% [Xylocaine 2% Viscous] 15 ml PO ASDIRECTED 3 Days #2 cup Instructions: Cold Sore, Cold Sore, [id number] Referrals: Angie Stallings SCRAP DROP CRANE OPERATOR [Primary Care Provider] - 3 Days Forms: ED Department Discharge Additional Instructions: The lesion that appears on your upper lip is very characteristic of a herpes virus-1 infection commonly known as a cold sore. The tenderness that you're feeling in her neck area is also commonly seen in patients that have cold sores. The symptoms due to the cold sore should resolve over the next 24-48 hours; the tenderness in the neck can stay on for 1-2 weeks. I am prescribing viscous lidocaine topical solution that you can apply to the cold sore on the lip; it works as an anesthetic. If if the symptoms persist acutely and you feel that you're getting worse please do not hesitate to come back to the ER. If the cold sores become a recurrent problem I would recommend you see your primary care physician for oral antiviral therapy would be indicated at that time. The following information is given to patients seen in the emergency department who are being discharged to home. This information is to outline your options for follow-up care. We provide all patients seen in our emergency department with a follow-up referral. The need for follow-up, as well as the timing and circumstances, are variable depending upon the specifics of your emergency department visit. If you don't have a primary care physician on staff, we will provide you with a referral. We always advise you to contact your personal physician following an emergency department visit to inform them of the circumstance of the visit and for follow-up with them and/or the need for any referrals to a consulting specialist. The emergency department will also refer you to a specialist when appropriate. This referral assures that you have the opportunity for follow-up care with a specialist. All of these measure are taken in an effort to provide you with optimal care, which includes your follow-up. Under all circumstances we always encourage you to contact your private physician who remains a resource for coordinating your care. When calling for follow-up care, please make the office aware that this follow-up is from your recent emergency room visit. If for any reason you are refused follow-up, please contact the [facility] Emergency Department at and asked to speak to the emergency department charge nurse.
[2017-08-25 19:07] VITALS: BP 126/74
== END 2017-08-25 19:00 | disposition home or self-care (01) ==
LOC: MW.ED 17:47
DX: B00.1 Herpesviral vesicular dermatitis (principal); I10 Essential (primary) hypertension; K21.9 Gastro-esophageal reflux disease without esophagitis; F41.9 Anxiety disorder, unspecified; F32.9 Major depressive disorder, single episode, unspecified; Z88.5 Allergy status to narcotic agent
CPT/HCPCS: 99283

== ENCOUNTER 2018-02-13 10:45 | Day surgery (SDC) | payer OTHER, BC ==
[2018-02-13] MEDS ORDERED: Lidocaine 2% 5 ML SDV ONE (12:01)
[2018-02-13] MEDS ORDERED: Ropivacaine 0.5% 5 MG/ML 30 ML SDV ONE (12:02)
[2018-02-13] MEDS ORDERED: Iopamidol 408 MG/ML 50 ML SDV ONE (12:02)
[2018-02-13] MEDS ORDERED: Betamethasone Acetate/Betamethasone Sod Phosphate 30 MG/5 ML MDV ONE (12:02)
--- NOTE | 2018-02-13 21:17 | OR ---
SURGEON: Pamella Cross D.O. DATE OF PROCEDURE: 02/13/2018 OR STAFF PRESENT: 1. Dianne Stover RN. 2. Kaia Montelongo RN. 3. Elenita Gates RN. 4. RT Kumar. WOUND CLASS: I. PREOPERATIVE DIAGNOSES: 1. Cervicalgia. 2. Cervical spondylosis. 3. Cervical degenerative disk disease. 4. Cervical facet syndrome. POSTOPERATIVE DIAGNOSES: 1. Cervicalgia. 2. Cervical spondylosis. 3. Cervical degenerative disk disease. 4. Cervical facet syndrome. PROCEDURE PERFORMED: 1. Right C3, right C4, right C5, right C6 medial branch blocks. 2. Fluoroscopic guidance for needle placement. 3. Local with oral Valium for sedation. SCREENING QUESTIONS: The patient answered "No" to all of the following questions: 1. Are you allergic to iodine, Betadine or latex? 2. Do you have a bleeding disorder? 3. Are you on anti-inflammatories or blood thinners? 4. Do you have any current local or systemic infections? 5. Do you have any joint replacements, heart valve replacements or a pacemaker? DESCRIPTION OF THE PROCEDURE: The patient had the procedure thoroughly explained including risks, benefits and alternatives. Consent was signed in my clinic indicating understanding and willingness to proceed. The patient presented to [facility] [place] and was escorted to the dressing room to disrobe and change into a hospital gown. Preoperative vital signs were taken and stable. The patient reported that Valium 10 milligrams was taken prior to the procedure. The patient was brought to the procedure room and placed in the left lateral position on the [facility] frame for the right cervical medial branch injections. A pillow was placed under the legs for patient comfort. The back was prepped with ChloraPrep and sterilely draped. All personnel in the operating room were dressed in appropriate attire including surgical scrubs, head and shoe covers. This was to ensure sterility while in the treatment room. During the time fluoroscopy was in use. all personnel in the operating room wore lead vera with thyroid collars. Sterile technique was used during the procedure. Skeletal landmarks were identified under fluoroscopic guidance for the C3-C6 medial branch blocks. The skin overlying the area was anesthetized with 2 cubic centimeters of 2% Lidocaine with a sterile 27-gauge 1.5 inch needle. Likewise the deep tissues were infiltrated. There was no evidence of infection at the sites of needle insertion. Then a 25-gauge 2.5 inch spinal needle was advanced under fluoroscopic guidance to lateral pedicle at C3,C4,C5,C6. The needle position was visualized in both AP, oblique, wig wag views for the precise postion and then position was verified, 0.2 cubic centimeters increments of IsoVue-200 contrast dye injected under live fluoroscopy through microbore tubing. There was negative aspiration of heme, CSF and no paresthesias were noted. Then 0.5 cc Celestone and local 1% lidocaine was slowly injected. The needle was cleared prior to removal from the skin. No adverse reactions were noted.This was repeated at each level. The patient tolerated the procedures well and was brought to the recovery room awake and in good condition. After a brief stay in the recovery room monitored by the nurse, the patient was discharged to home. The patient was given both oral and written discharge and followup instructions and will follow up in the clinic in two to three weeks. The patient voiced understanding including understanding of those signs and symptoms that would require emergency care and also knows how to contact the office if there are any problems or questions in the meantime. PREOPERATIVE PAIN: 5/10. POSTOPERATIVE PAIN: /10. FOLLOWUP: Follow up in Pain Clinic in 3 weeks. SERJIO AL /[id number] MTDD
== END 2018-02-13 13:26 ==
LOC: MW.SDS 10:45
PROVIDERS: ATTEND Anesthesiology
DX: M47.812 Spondylosis without myelopathy or radiculopathy, cervical region (principal); M50.30 Other cervical disc degeneration, unspecified cervical region; M48.8X2 Other specified spondylopathies, cervical region; I10 Essential (primary) hypertension; E66.9 Obesity, unspecified; Z68.37 Body mass index [BMI] 37.0-37.9, adult; F32.9 Major depressive disorder, single episode, unspecified; Z79.899 Other long term (current) drug therapy; Z88.5 Allergy status to narcotic agent
CPT/HCPCS: 64490; 64491; 64492; J0702; Q9966; J2795

== ENCOUNTER 2024-02-15 12:23 | Emergency (ER) | payer OTHER, BC ==
[2024-02-15] MEDS: oxyCODONE 5 MG Tab PO STA (12:44)
[2024-02-15] MEDS: Ondansetron 4 MG Tab.DIS PO STA (12:44)
[2024-02-15 13:57] VITALS: BP 123/54; PULSE 71
[2024-02-15] MEDS: Ketorolac 30 MG/ML SDV IM STA (15:46)
== END 2024-02-15 15:49 | disposition home or self-care (01) ==
LOC: MW.ED 12:23
DX: S16.1XXA Strain of muscle, fascia and tendon at neck level, initial encounter (principal); S40.022A Contusion of left upper arm, initial encounter; I10 Essential (primary) hypertension; E66.9 Obesity, unspecified; Z90.49 Acquired absence of other specified parts of digestive tract; Z90.710 Acquired absence of both cervix and uterus; Z88.5 Allergy status to narcotic agent; Z79.899 Other long term (current) drug therapy; Z75.8 Other problems related to medical facilities and other health care; V49.49XA Driver injured in collision with other motor vehicles in traffic accident, initial encounter; Y92.410 Unspecified street and highway as the place of occurrence of the external cause
CPT/HCPCS: 70450; 72125; 72128; 72131; 73030; 73060; 73080; 96372; 99285; A9270; J1885; 99284